=== PATIENT | female | born 1990 | race Caucasian/White ===

== ENCOUNTER 2017-01-17 11:13 | Outpatient (CLI) | payer MEDICAID | END 2017-01-17 11:14 | disposition home or self-care (01) | LOC: LAB 11:13 | PROVIDERS: ATTEND Family Medicine | DX: N92.6 Irregular menstruation, unspecified (principal) | CPT/HCPCS: 36415; 84702 ==

== ENCOUNTER 2017-04-09 20:24 | Emergency (ER) | payer MEDICAID ==
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
[2017-04-09 20:57] LABS: BILIRUBIN,URINE NEGATIVE (NEGATIVE)
[2017-04-09 21:00] LABS: HCG UR QUAL POSITIVE; UA CHARGE (STRIP ONLY) YES; UR CULTURE IF IND NOT INDICATED
--- NOTE | 2017-04-09 22:55 | Ultrasound Preliminary Report ---
Exam: US OB LIMITED IMPRESSION: 1. Shepherd live intrauterine with gestational age 16 weeks 5 days based on established ED D. 2. Anterior placenta without evidence for abruption on the provided images. 3. Normal amniotic fluid volume. [facility] SITE ID: [id number]
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
[2017-04-09 23:57] VITALS: BP 118/63
== END 2017-04-09 23:58 | disposition home or self-care (01) ==
LOC: ED 20:24
DX: O26.892 Other specified pregnancy related conditions, second trimester (principal); R10.2 Pelvic and perineal pain; Z3A.16 16 weeks gestation of pregnancy
CPT/HCPCS: 76815; 81001; 81003; 81025; 86900; 86901; 87086; 99283; 99284

== ENCOUNTER 2017-07-16 05:41 | Emergency (ER) | payer MEDICAID ==
[2017-07-16 06:16] LABS: BASOPHILS % (AUTO) 0.3 %; EOSINOPHILS # (AUTO) 0.1 10^3/uL (0.0-0.7); EOSINOPHILS % (AUTO) 0.4 %; HGB - HEMOGLOBIN 10.9 g/dL (12.0-16.0); LYMPHOCYTES # (AUTO) 0.8 10^3/uL (1.5-3.5); LYMPHOCYTES % (AUTO) 5.1 %; MEAN CORPUSCULAR HEMOGLOBIN 26.4 pg (27.0-31.0); MEAN CORPUSCULAR HGB CONC 32.1 g/dL (32.0-36.0); MEAN CORPUSCULAR VOLUME 82.3 fL (81.0-99.0); MEAN PLATELET VOLUME 9.3 fL (7.9-10.8); MONOCYTES # (AUTO) 0.6 10^3/uL (0.0-1.0); MONOCYTES % (AUTO) 4.1 %; NEUTROPHILS # (AUTO) 13.7 10^3/uL (1.5-6.6); NEUTROPHILS % (AUTO) 90.1 %; PLT - PLATELET COUNT 267 10^3/uL (130-450); RED BLOOD COUNT 4.13 10^6/uL (4.20-5.40); RED CELL DISTRIBUTION WIDTH 13.5 % (12.0-15.0); WHITE BLOOD COUNT 15.2 x10^3/uL (4.8-10.8)
[2017-07-16 06:27] LABS: ALBUMIN 3.6 g/dL (3.2-5.5); ALBUMIN/GLOBULIN RATIO 0.9 (1.0-2.2); BILIRUBIN,TOTAL 0.8 mg/dL (0.2-1.0); CREATININE 0.5 mg/dL (0.4-1.0); TOTAL PROTEIN 7.5 g/dL (6.7-8.2)
[2017-07-16 06:52] LABS: BILIRUBIN,URINE NEGATIVE (NEGATIVE); GLUCOSE, URINE (UA) NEGATIVE (NEGATIVE); KETONES,URINE (UA) NEGATIVE (NEGATIVE); LEUKOCYTE ESTERASE, URINE NEGATIVE (NEGATIVE); NITRITE,URINE NEGATIVE (NEGATIVE); OCCULT BLOOD,URINE NEGATIVE (NEGATIVE); PH,URINE 8.5 PH (5.0-7.5); PROTEIN,URINE NEGATIVE (NEGATIVE); UROBILINOGEN,URINE 0.2 (NORMAL) E.U./dL (NORMAL)
[2017-07-16 07:06] LABS: CLARITY,URINE CLEAR (CLEAR)
[2017-07-16] MEDS ORDERED: SODIUM CHLORIDE 0.9% 1,000 ML IV ONE (07:26)
[2017-07-16] MEDS ORDERED: PROMETHAZINE INJ 25 MG in SODIUM CHLORIDE 0.9% 50 ML IV STA (07:26)
--- NOTE | 2017-07-16 07:32 | ED Physician Documentation ---
PD HPI NVD - Stated complaint Stated Complaint: VOMITING,29W - Chief complaint Chief Complaint: Abd Pain - History obtained from History obtained from: Patient - History of Present Illness Timing - onset: Enter time (0200), Last night Timing - duration: Hours Timing - details: Abrupt onset, Still present Associated symptoms: No: Fever, Abdominal pain, Vaginal bleeding Contributing factors: Sick contact (works in a alf with GI illness outbreak) Improved by: Laying still Similar symptoms before: Has not had sx before Recently seen: Other (is getting routine pre-joshua care) - Additonal information Additional information: 26-year-old female who is 29 weeks and 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 At 2 AM this morning she awoke with nausea and vomiting and diarrhea. She has had 3 episodes of diarrhea she has not had abdominal pain or contractions associated with this and has not had any blood in the vomitus. She is getting her care at [facility]. Review of Systems Constitutional: denies: Fever Eyes: denies: Decreased vision Ears: denies: Ear pain Nose: denies: Congestion Throat: denies: Sore throat Cardiac: denies: Chest pain / pressure, Palpitations Respiratory: denies: Dyspnea, Cough GI: reports: Nausea, Vomiting, Diarrhea. denies: Abdominal Pain : denies: Dysuria, Frequency Skin: denies: Rash Musculoskeletal: denies: Neck pain, Back pain Neurologic: denies: Generalized weakness, Focal weakness PD PAST MEDICAL HISTORY - Past Medical History Past Medical History: Yes Cardiovascular: None Respiratory: None Neuro: None Endocrine/Autoimmune: None GI: None DIRECTOR OF PUBLIC WORKS: None : None HEENT: None Psych: Depression Musculoskeletal: None Derm: None - Past Surgical History Past Surgical History: No - Present Medications Home Medications: Ambulatory Orders Medication Instructions Recorded Confirmed Ondansetron HCl [Zofran] 4 mg PO Q6HR PRN 05/14/15 05/14/15 Acetaminophen 975 mg PO PRN 06/27/15 06/27/15 diphenhydrAMINE [Benadryl] 25 mg PO PRN 06/27/15 06/27/15 Dicyclomine [Bentyl] 10 mg PO QID PRN #20 capsule 04/30/16 Promethazine [Phenergan] 25 mg PO Q6H PRN #10 tab 04/30/16 Promethazine [Phenergan] 25 - 50 mg PO Q6H PRN #10 tab 07/16/17 - Allergies Allergies/Adverse Reactions: Allergies Allergy/AdvReac Type Severity Reaction Status Date / Time amoxicillin [Amoxicillin] Allergy Mild Rash Verified 02/16/15 17:04 Penicillins Allergy Mild Rash Verified 02/16/15 17:04 ondansetron HCl * Allergy Dizziness Verified 04/30/16 20:34 [From Zofran (as hydrochloride)] azithromycin [From Zithromax] AdvReac Intermediate migraine Verified 02/16/15 17 :04 - Social History Does the pt smoke?: No Smoking Status: Never smoker Does the pt drink ETOH?: No Does the pt have substance abuse?: No - Immunizations Immunizations are current?: Yes Immunizations: TDAP current <10years, Other immun current - POLST Patient has POLST: No PD ED PE NORMAL - Vitals Vital signs reviewed: Yes (tachy ) - General General: Alert and oriented X 3, Well developed/nourished - HEENT HEENT: Atraumatic, PERRL, EOMI, Other (dry mucous membranes) - Neck Neck: Supple, no meningeal sign - Cardiac Cardiac: No murmur, Other (tachy to 110) - Respiratory Respiratory: No respiratory distress, Clear bilaterally - Abdomen Abdomen: Soft, Non tender, Other (gravid uterus consistent with dates) - Back Back: No CVA TTP, No spinal TTP - Derm Derm: Normal color, Warm and dry, No rash - Extremities Extremities: No deformity, No edema - Neuro Neuro: Alert and oriented X 3, No motor deficit, No sensory deficit, Normal speech Eye Opening: Spontaneous Motor: Obeys Commands Verbal: Oriented GCS Score: 15 - Psych Psych: Normal mood, Normal affect Results - Vitals Vitals: Vital Signs - 24 hr 07/16/17 07/16/17 05:47 08:50 Temperature 37.1 C Heart Rate 109 H 92 Respiratory 18 16 Rate Blood Pressure 121/80 117/75 O2 Saturation 98 Oxygen O2 Source Room air - Labs Labs: Laboratory Tests 07/16/17 07/16/17 07/16/17 05:55 05:55 06:20 WBC 15.2 H RBC 4.13 L Hgb 10.9 L Hct 34.0 L MCV 82.3 MCH 26.4 L MCHC 32.1 RDW 13.5 Plt Count 267 MPV 9.3 Neut # 13.7 H Lymph # 0.8 L [place] # 0.6 Eos # 0.1 Baso # 0.0 Absolute Nucleated RBC 0.00 Nucleated RBC % 0.0 Sodium 138 Potassium 3.7 Chloride 104 Carbon Dioxide 23 Anion Gap 11.0 BUN 6 Creatinine 0.5 Estimated GFR (MDRD) 150 Glucose 87 Calcium 9.0 Total Bilirubin 0.8 AST 19 ALT 10 Alkaline Phosphatase 80 Total Protein 7.5 Albumin 3.6 Globulin 3.9 Albumin/Globulin Ratio 0.9 L Lipase 25 Urine Color YELLOW Urine Clarity CLEAR Urine pH 8.5 H Ur Specific [place] 1.020 Urine Protein NEGATIVE Urine Glucose (UA) NEGATIVE Urine Ketones NEGATIVE Urine Occult Blood NEGATIVE Urine Nitrite NEGATIVE Urine Bilirubin NEGATIVE Urine Urobilinogen 0.2 (NORMAL) Ur Leukocyte Esterase NEGATIVE Ur Microscopic Review NOT INDICATED Urine Culture Comments NOT INDICATED Procedures - Bedside sono Bedside sono by EMP: With use of bedside ultrasound the fetus is imaged it appears viable heart rate of 156 with a biparietal diameter giving a gestational age of 29 weeks 6 days. 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 She is administered a liter of saline and Phenergan with improvement she is taken to the obstetrical schultz for evaluation and has a normal nonstress test and is not in labor. She feels improved after the liter of saline and improved with the nausea having use the Phenergan and we will discharge her to home with a note for work for 3 days. Departure - Departure Disposition: 01 Home, Self Care Clinical Impression: Gastroenteritis Condition: Stable Instructions: ED Gastroenteritis Viral Follow-Up: PRIETO SMITH [Primary Care Provider] - Prescriptions: Promethazine [Phenergan] 25 - 50 mg PO Q6H PRN #10 tab PRN Reason: Nausea / Vomiting Forms: Activity restrictions
[2017-07-16 10:00] VITALS: BP 112/80
== END 2017-07-16 10:05 | disposition home or self-care (01) ==
LOC: ED 05:41
DX: O99.283 Endocrine, nutritional and metabolic diseases complicating pregnancy, third trimester (principal); E86.0 Dehydration; O99.613 Diseases of the digestive system complicating pregnancy, third trimester; A08.4 Viral intestinal infection, unspecified; Z3A.29 29 weeks gestation of pregnancy
CPT/HCPCS: 36415; 80053; 81003; 83690; 85025; 96365; 99283; J7040; 81001; 87086